=== PATIENT | female | born 1985 | race Caucasian/White ===

== ENCOUNTER → 2017-04-10 | Outpatient (CLI) | payer BC ==
[2015-02-08 08:44] VITALS: BMI 36.0
[~2017-04-10] MED LIST: ACE3 PO; Benzocaine 60 ML TP; DOCU240C67 PO; HYDR-6018 PR; IBU800 PO; IBUP600T22 PO; Lanolin TP; NORG1TAB6 PO; PREN-75 PO; TUCKS TP
--- NOTE | 2017-04-10 16:42 | RADIOLOGY IMAGING REPORT ---
FACILITY: [facility] - [place] PATIENT NAME: VIOLA HILLS : [id number] MR: [id number] V: [id number] EXAM DATE: [id number] ORDERING PHYSICIAN: ROHIT BELTRAN TECHNOLOGIST: Angela Lerma PROCEDURE:BILATERAL DIGITAL SCREENING MAMMOGRAM WITH CAD ASSISTED INTERPRETATION & 3D TOMOSYNTHESIS COMPARISON:This is a baseline mammogram. 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 FINDINGS: There are benign appearing asymmetries in both breasts. No dominant mass, architectural distortions or suspicious calcifications are seen. DIAGNOSTIC CATEGORY 1--NEGATIVE. RECOMMENDATIONS: ROUTINE ANNUAL SCREENING BILATERAL MAMMOGRAM. Consider genetic counseling to determine lifetime breast cancer risk. IMPRESSION: BIRADS 1: Negative. Dictated by: Sendy Grady M.D. on 04/10/2017 at 14:15 Transcribed by: CHRISTOPHER on 04/10/2017 at 14:58 Approved by: Sendy Grady M.D. on 04/10/2017 at 16:41 [facility]
== END ==
LOC: MAMO 02:33
PROVIDERS: ATTEND Obstetrics & Gynecology
DX: Z12.31 Encounter for screening mammogram for malignant neoplasm of breast (principal); Z80.3 Family history of malignant neoplasm of breast
CPT/HCPCS: 77063; 77067

== ENCOUNTER → 2018-04-30 | Outpatient (CLI) | payer BC, OTHER ==
[2015-02-08 08:44] VITALS: BMI 36.0
[~2018-04-30] MED LIST changes: -PREN-75 PO; +PREN1TAB29 PO
--- NOTE | 2018-05-03 10:49 | RADIOLOGY IMAGING REPORT ---
FACILITY: [facility] - [place] PATIENT NAME: VIOLA HILLS : [id number] MR: [id number] V: [id number] EXAM DATE: [id number] ORDERING PHYSICIAN: ROHIT BELTRAN TECHNOLOGIST: Marquita Luna PROCEDURE:BILATERAL DIGITAL SCREENING MAMMOGRAM WITH CAD ASSISTED INTERPRETATION & 3D TOMOSYNTHESIS COMPARISON:Prior mammograms. INDICATIONS:screening FINDINGS: Scattered fibroglandular densities are present in both breasts. A few benign appearing asymmetries are scattered bilaterally, unchanged. DIAGNOSTIC CATEGORY 1--NEGATIVE. RECOMMENDATIONS: ROUTINE MAMMOGRAM AND CLINICAL EVALUATION. IMPRESSION: BIRADS 1: Negative. Dictated by: Mathew Ruelas M.D. on 04/30/2018 at 17:08 Transcribed by: MILAGRO on 05/03/2018 at 8:33 Approved by: Violet Parry M.D. on 05/03/2018 at 10:48 [facility]
== END ==
LOC: MAMO 02:26
PROVIDERS: ATTEND Obstetrics & Gynecology
DX: Z12.31 Encounter for screening mammogram for malignant neoplasm of breast (principal)
CPT/HCPCS: 77063; 77067